=== PATIENT | female | born 1965 | race Caucasian/White ===

== ENCOUNTER 2017-01-10 21:48 | Emergency (ER) | payer BC ==
--- NOTE | ~2017-01-10 | EKG ---
PATIENT: GARTH CONRAD UNIT #: [id number] Ventricular Rate: 99 BPM Atrial Rate: 99 BPM P-R Interval: 120 ms QRS Duration: 80 ms Q-T Interval: 342 ms QTC Calculation(Bezet): 438 ms P [place]: 17 degrees Calculated R [place]: 28 degrees Calculated T [place]: 26 degrees Diagnosis Line: Normal sinus rhythm Diagnosis Line: Normal ECG Diagnosis Line: When compared with ECG of 28-SEP-2014 09:09, Diagnosis Line: No significant change was found Diagnosis Line: Confirmed by MIGUEL ÁNGEL SALAS MD ([id number]) on 01/10/2017 Diagnosis Line: 11:43:08 PM INTERPRETING MD: MARITZA SOLOMON
[~2017-01-10 21:48] MED LIST: ANTIVERT PO; CO Q 10; KEFLEX PO; LORTAB 7.5-5001 TAB PO; PHOSPHATIDYL SERINE
== END 2017-01-10 21:58 | disposition left against medical advice (07) ==
LOC: CED 21:48
DX: Z53.21 Procedure and treatment not carried out due to patient leaving prior to being seen by health care provider (principal)
CPT/HCPCS: 93005